=== PATIENT | male | born 1980 | race Caucasian/White ===

== ENCOUNTER 2017-06-30 22:53 | Emergency (ER) | payer OTHER ==
[2017-06-30] MEDS ORDERED: SODIUM CHLORIDE 0.9% 1,000 ML with MVI, ADULT NO.4 WITH VIT K 10 ML, THIAMINE 100 MG, F... IV ONE ×4 (23:37)
[2017-06-30] MEDS ORDERED: LORazepam 1 MG TAB PO STA (23:37)
[2017-06-30 23:44] LABS: Amphetamine Screen,Urine Not Detected (NotDetected); Barbiturate Screen,Urine Not Detected (NotDetected); Benzodiazepines Screen,Urine Not Detected (NotDetected); Cocaine Screen,Urine Not Detected (NotDetected); Methadone Screen, Urine Not Detected (NotDetected); Opiate Screen,Urine Not Detected (NotDetected); Oxycodone Screen, Urine Not Detected (NotDetected); Phencyclidine Screen,Urine Not Detected (NotDetected); Tricyclic Antidepressant,Urine Not Detected (NotDetected); Urn Cannabinoid Scrn Not Detected (NotDetected)
[2017-07-01 00:02] LABS: Basophils % (A) 0 %; Eosinophils # (A) 0.1 k/uL (0-0.7); Eosinophils % (A) 1 %; HCT 46.4 % (39.0-53.0); HGB 16.1 gm/dL (13.0-17.5); Lymphocytes # (A) 1.4 k/uL (1.0-4.8); Lymphocytes % (A) 25 %; MCH 29.3 pg (25.0-35.0); MCHC 34.8 g/dL (31.0-37.0); MCV 84.3 fL (80.0-100.0); Mean Platelet Volume 7.3; Monocytes # (A) 0.3 k/uL (0-1.0); Monocytes % (A) 5 %; Neutrophils # (A) 3.8 k/uL (1.3-7.7); Neutrophils % (A) 67 %; Platelet Count 277 k/uL (150-450); RDW 12.5 % (11.5-15.5); WBC 5.8 k/uL (3.8-10.6)
--- NOTE | 2017-07-01 00:11 | XR ---
History rib pain. Comparison none. Technique 5 views. FINDINGS: Heart and mediastinum are normal. There is no pleural effusion or pneumothorax. Left lung is clear. T here is probably a nondisplaced fracture of the anterior tip of the left 10th rib. The other ribs gareth ear intact. CONCLUSION: No cardiopulmonary disease. Nondisplaced left 10th rib fracture.
[2017-07-01 00:24] LABS: ALT 40 U/L (21-72); AST 60 U/L (17-59); Albumin 5.3 g/dL (3.5-5.0); Alkaline Phosphatase 87 U/L (38-126); Amylase 93 U/L (30-110); Anion Gap 23 mmol/L; Blood Urea Nitrogen 6 mg/dL (9-20); Calcium 10.2 mg/dL (8.4-10.2); Carbon Dioxide 27 mmol/L (22-30); Chloride 95 mmol/L (98-107); Glucose 97 mg/dL (74-99); Lipase 219 U/L (23-300); Potassium 3.9 mmol/L (3.5-5.1); Sodium 145 mmol/L (137-145); Total Bilirubin 0.6 mg/dL (0.2-1.3); Total Protein 8.5 g/dL (6.3-8.2)
--- NOTE | 2017-07-01 01:23 | ED ---
General Adult HPI - General Source: patient, family, RN notes reviewed Mode of arrival: wheelchair Limitations: no limitations <Héctor Dorantes - Last Filed: 07/01/17 01:23> <Adair Angeles - Last Filed: 07/01/17 12:55> - General Chief complaint: Alcohol Stated complaint: Rib Injury, Alcohol Time Seen by Provider: 06/30/17 23:31 - History of Present Illness Initial comments: Chief complaint history of present illness a 36-year-old male here with 2 complaints one he thinks he is withdrawing from alcohol. He drank only 3 beers several hours ago. His current breath alcohol was measured at 0.311. The patient also reports that a dog jumped on him on his on the sofa 4 days ago injuring his left rib cage. (Héctor Dorantes) - Related Data Home Medications Medication Instructions Recorded Confirmed Melatonin 5 mg PO HS 06/30/17 06/30/17 Previous Rx's Medication Instructions Recorded Diazepam [Valium] 5 mg PO Q6H #10 tab 07/01/17 Allergies Allergy/AdvReac Type Severity Reaction Status Date / Time No Known Allergies Allergy Verified 06/30/17 23:24 Review of Systems ROS Other: All systems not noted in ROS Statement are negative. <Héctor Dorantes - Last Filed: 07/01/17 01:23> ROS Other: All systems not noted in ROS Statement are negative. <Adair Angeles - Last Filed: 07/01/17 12:55> ROS Statement: Those systems with pertinent positive or pertinent negative responses have been documented in the HPI. Review of systems no other complaints of headache or visual acuity changes she has left rib area pain. No abdominal pain denies nausea vomiting or diarrhea. Past medical problems he's been through alcohol rehab 5 years ago. Surgeries are none. Family history grandfather is no alcoholic. Grandmother had lung cancer. The patient denies ALLERGIES. He does smoke strongly encouraged to stop in the reports is not alcoholic. (Héctor Dorantes) Past Medical History Additional Past Medical History / Comment(s): alcoholism History of Any Multi-Drug Resistant Organisms: None Reported Past Surgical History: No Surgical Hx Reported Past Psychological History: Depression Smoking Status: Current every day smoker Past Alcohol Use History: Abuse, Daily Past Drug Use History: None Reported <Héctor Dorantes - Last Filed: 07/01/17 01:23> General Exam Limitations: no limitations <Héctor Dorantes - Last Filed: 07/01/17 01:23> <Adair Angeles - Last Filed: 07/01/17 12:55> - General Exam Comments Initial Comments: General: The patient is awake states he thinks he is going through withdrawal. Current breath alcohol is 0.311. Also complains of left rib cage pain. Vital signs temperature 97.0 pulse 103 respiratory rate 18 pulse ox 96% room air blood pressure 136/92 Eye: Pupils are equal, round and reactive to light, extra-ocular movements are intact ; there is normal conjunctiva bilaterally. No signs of icterus. Ears, nose, mouth and throat: There are moist mucous membranes and no oral lesions. Neck: The neck is supple, there is no tenderness . Cardiovascular: There is a regular rate and rhythm. No murmur, rub or gallop is appreciated. Respiratory: Lungs are clear to auscultation, respirations are non-labored, breath sounds are equal. No wheezes, stridor, rales, or rhonchi. No bruises noted on the chest wall. Gastrointestinal: Soft, non-distended, non-tender abdomen without masses or organomegaly noted. There is no rebound or guarding present. No CVA tenderness. Bowel sounds are unremarkable. Back: There is no tenderness to palpation in the midline. There is no obvious deformity. No rashes noted. Musculoskeletal: Normal ROM, no tenderness, There is no pedal edema. There is no calf tenderness or swelling. Neurological: No neuro deficits. Patient answers questions appropriately. Patient states he thinks he might be going through withdrawal. Skin: Skin is warm and dry and no rashes or lesions are noted. (Héctor Dorantes) Vital Signs 06/30/17 07/01/17 07/01/17 22:56 02:00 02:33 Temperature 97.0 F L 98.5 F Pulse Rate 103 H 90 Respiratory 18 17 18 Rate Blood Pressure 136/92 146/65 O2 Sat by Pulse 96 97 Oximetry 07/01/17 07/01/17 07/01/17 03:00 05:00 06:10 Temperature 98.5 F Pulse Rate 96 Respiratory 16 16 19 Rate Blood Pressure 104/65 O2 Sat by Pulse 96 Oximetry Medical Decision Making - Lab Data Result diagrams: 06/30/17 23:44 06/30/17 23:44 <Héctor Dorantes - Last Filed: 07/01/17 01:23> - Lab Data Result diagrams: 06/30/17 23:44 06/30/17 23:44 <Melo Angelesophe - Last Filed: 07/01/17 12:55> - Medical Decision Making Medical decision making; is a 36-year-old males comes emergency room with 2 complaints the first day thinks he is detoxing. He does state he had 3 beers prior to coming in and his breath alcohol is 0.311. Also complains of left sided rib cage pain which been ongoing for 5 days after a dog jumped on him while he was on a sofa. Labs show white count of 5.8 hemoglobin 16 hematocrit of 46 with a potassium 3.9. BUN 6 creatinine 0.8 GFR greater than 90. Glucose 97. Drug triage is negative. The patient's EtOH breath alcohol was 0.311. Amylase lipase normal limits. Patient did tell the admitting triage nurse that he was suicidal was crying in the both of the time. He will not be sober until 11 AM for evaluation by psychiatric nurse. Patient was started on banana bag and Ativan. Etiologies reviewed x-rays of the patient's chest and his impression is no cardiopulmonary disease nondisplaced left 10th rib fracture. As read by Dr. Gibson (Héctor Dorantes) - Lab Data Lab Results 06/30/17 06/30/17 06/30/17 Range/Units 23:11 23:44 23:44 WBC 5.8 (3.8-10.6) k/uL RBC 5.50 (4.30-5.90) m/uL Hgb 16.1 (13.0-17.5) gm/dL Hct 46.4 (39.0-53.0) % MCV 84.3 (80.0-100.0) fL MCH 29.3 (25.0-35.0) pg MCHC 34.8 (31.0-37.0) g/dL RDW 12.5 (11.5-15.5) % Plt Count 277 (150-450) k/uL Neutrophils % 67 % Lymphocytes % 25 % Monocytes % 5 % Eosinophils % 1 % Basophils % 0 % Neutrophils # 3.8 (1.3-7.7) k/uL Lymphocytes # 1.4 (1.0-4.8) k/uL Monocytes # 0.3 (0-1.0) k/uL Eosinophils # 0.1 (0-0.7) k/uL Basophils # 0.0 (0-0.2) k/uL Sodium 145 (137-145) mmol/L Potassium 3.9 (3.5-5.1) mmol/L Chloride 95 L (98-107) mmol/L Carbon Dioxide 27 (22-30) mmol/L Anion Gap 23 mmol/L BUN 6 L (9-20) mg/dL Creatinine 0.80 (0.66-1.25) mg/dL Est GFR (CKD-EPI)AfAm >90 (>60 ml/min/1.73 sqM) Est GFR (CKD-EPI)NonAf >90 (>60 ml/min/1.73 sqM) Glucose 97 (74-99) mg/dL Calcium 10.2 (8.4-10.2) mg/dL Total Bilirubin 0.6 (0.2-1.3) mg/dL AST 60 H (17-59) U/L ALT 40 (21-72) U/L Alkaline Phosphatase 87 (38-126) U/L Total Protein 8.5 H (6.3-8.2) g/dL Albumin 5.3 H (3.5-5.0) g/dL Amylase 93 (30-110) U/L Lipase 219 (23-300) U/L Urine Opiates Screen Not Detected (NotDetected) Ur Oxycodone Screen Not Detected (NotDetected) Urine Methadone Screen Not Detected (NotDetected) Ur Propoxyphene Screen Not Detected (NotDetected) Ur Barbiturates Screen Not Detected (NotDetected) U Tricyclic Antidepress Not Detected (NotDetected) Ur Phencyclidine Scrn Not Detected (NotDetected) Ur Amphetamines Screen Not Detected (NotDetected) U Methamphetamines Scrn Not Detected (NotDetected) U Benzodiazepines Scrn Not Detected (NotDetected) Urine Cocaine Screen Not Detected (NotDetected) U Marijuana (THC) Screen Not Detected (NotDetected) Disposition <Héctor Dorantes - Last Filed: 07/01/17 01:23> Is patient prescribed a controlled substance at d/c from ED?: Yes When asked, does pt state using other controlled substances?: No Time of Disposition: 12:54 <Adair Angeles - Last Filed: 07/01/17 12:55> Clinical Impression: Alcoholic intoxication Disposition: HOME SELF-CARE Condition: Good Instructions: Alcohol Intoxication (ED) Prescriptions: Diazepam [Valium] 5 mg PO Q6H #10 tab Referrals: None,Stated [Primary Care Provider] - 1-2 days
[2017-07-01] MEDS ORDERED: LORazepam 2 MG/ML INJ IV PRN ×3 (01:25)
[2017-07-01 13:31] VITALS: BP 127/69; PULSE 88; RESP 16; TEMP 98
== END 2017-07-01 14:00 | disposition home or self-care (01) ==
LOC: EC 22:53
DX: S22.32XA Fracture of one rib, left side, initial encounter for closed fracture (principal); F10.129 Alcohol abuse with intoxication, unspecified; F17.200 Nicotine dependence, unspecified, uncomplicated; Z79.899 Other long term (current) drug therapy; W54.1XXA Struck by dog, initial encounter
CPT/HCPCS: 99284; 82075; 36415; 80053; 82150; 83690; 85025; 80306; 71101; 96365; 96366 ×13; 96375; J2060; J3411

== ENCOUNTER 2020-09-12 15:07 | Emergency (ER) | payer OTHER ==
--- NOTE | 2020-09-12 15:22 | ED ---
General Adult HPI - General Chief complaint: Psychiatric Symptoms Stated complaint: mental health Time Seen by Provider: 09/12/20 15:22 Source: patient, RN notes reviewed, old records reviewed Limitations: no limitations - History of Present Illness Initial comments: Patient is a 40-year-old male with past medical history remarkable for chronic alcohol abuse, depression, anxiety, alcohol withdrawal's who presents emergency Department complaining of being drunk and feeling depressed and suicidal. He has been having suicidal ideations but denies any attempts or plans. He is also complaining of insomnia over the last few days. He states he has gone through alcohol chills in the past, dispensing seizures as well as bad tremors. He has been drinking for the last 3 days after being sober for 2-1/2 days previously. He was in the hospital last weekend for alcohol withdrawals and discharged on Librium on Monday, which she took until Monday. He has been drinking since Monday evening. Is currently Monday afternoon. Denies any homicidal ideations, attempts, plans. He denies any visual or auditory hallucinations. He denies any tremors. He states he does feel anxious. He has not slept in 3 days. He is willing to discuss possibly quitting alcohol use. He denies any chest pain, shortness breath, headaches. He does endorse general last abdominal pain which is chronic. He denies any nausea or vomiting. He is requesting a dose of Ativan to help him calm down. He otherwise has no acute complaints at this time. Patient was brought in by himself in with his friend over concern for safety secondary to the suicidal ideations. - Related Data Home Medications Medication Instructions Recorded Confirmed DULoxetine HCL [Cymbalta] See Taper PO DAILY 09/12/20 09/12/20 Folic Acid 1 mg PO DAILY 09/12/20 09/12/20 Thiamine [Vitamin B-1] 100 mg PO DAILY 09/12/20 09/12/20 chlordiazePOXIDE HCl [Librium] See Taper PO BID 09/12/20 09/12/20 hydrOXYzine pamoate [Vistaril] 25 mg PO HS PRN 09/12/20 09/12/20 Allergies Allergy/AdvReac Type Severity Reaction Status Date / Time No Known Allergies Allergy Verified 09/12/20 17:31 Review of Systems ROS Statement: Those systems with pertinent positive or pertinent negative responses have been documented in the HPI. Review of Systems: CONST: Denies fever EYES: Denies blurry vision ENT: Denies nasal congestion C/V: Denies Chest pain RESP: Denies shortness of breath GI: Endorses abdominal pain : Denies dysuria SKIN: Denies rash. MSK: Denies joint pain. NEURO: Denies headache PSYCH: Denies homicidal ideations/plans/attempts. Denies visual or auditory hallucinations. Endorses suicidal ideations. Denies suicidal plans or attempts. ROS Other: All systems not noted in ROS Statement are negative. Past Medical History Additional Past Medical History / Comment(s): alcoholism History of Any Multi-Drug Resistant Organisms: None Reported Past Surgical History: No Surgical Hx Reported Past Psychological History: Anxiety, Depression, PTSD Smoking Status: Current every day smoker Past Alcohol Use History: Abuse, Daily Past Drug Use History: None Reported General Exam - General Exam Comments Initial Comments: General: Appears acutely intoxicated with alcohol but not currently going through withdrawals. HEAD: Normal with no signs of head trauma. EYES: PERRLA, EOMI, conjunctiva normal, no discharge. ENT: Hearing grossly intact, normal oropharynx. No oropharyngeal tremor. RESPIRATORY: Clear breath sounds bilaterally. No wheezes, rales, or rhonchi. C/V: Patient is tachycardic with a regular rhythm. S1 and S2 auscultated. No peripheral edema. Peripheral pulses are 2+ intact throughout. ABD: Abdomen is soft, nondistended. He does have some generalized tenderness to palpation over the abdomen. There is no guarding. There are no peritoneal signs. Abdominal exam is unimpressive. EXT: Normal range of motion, no obvious deformity SKIN: No rashes or lesions observed on exposed skin. NEURO: Alert and oriented 4. Cranial nerves II through XII intact. No focal sensory or strength deficits. Patient currently has no tremors. Limitations: no limitations Course Vital Signs 09/12/20 09/12/20 09/12/20 15:13 18:21 21:10 Temperature 98.1 F Pulse Rate 118 H 95 74 Respiratory 22 16 18 Rate Blood Pressure 131/75 115/67 110/62 O2 Sat by Pulse 99 99 99 Oximetry Medical Decision Making - Medical Decision Making Based on the patient's presentation and physical exam, I do believe that he will require psychiatric evaluation for his alcohol abuse as well as suicidal ideations, however I would like to medically clear him for first. We will obtain basic laboratory studies due to his tachycardia as well as his nonspecific abdominal pain that he is experiencing. This will include an alcohol level. He will be given 0.5 of IV Ativan as well as 1 L fluid bolus. EKG will be obtained as a screening tool for his tachycardia. He was placed in green scrubs. Patient does have a history of alcohol withdrawals, however he currently does not appear to be in active withdrawal. The tachycardia is likely more anxiety related. We will continue to monitor for withdrawals and Librium when necessary will be ordered for agitation and withdrawal symptoms. Laboratory studies remarkable for alcohol intoxication with a level 253. The remainder of his labs are unremarkable. EKG revealed sinus tachycardia. He also appears to have a mild incomplete right bundle branch block. At this time, she will protocol was placed and Ativan alcohol withdrawl protocol was placed. Librium was cancelled. He'll be evaluated by psychiatry once sober. Abdominal pain is improved. Patient is cleared for evaluation by robert [email or web address]. Psychiatry evaluated the patient, and he will be admitted to the hospital. Psychiatry requested a COVID-19 swab. Admission certification was filled out by me after discussion with the patient. Patient will therefore require inpatient psychiatry evaluation and admission. Patient will be admitted in fair condition. - Lab Data Result diagrams: 09/12/20 15:45 09/12/20 15:45 Lab Results 09/12/20 09/12/20 09/12/20 Range/Units 15:45 15:45 16:05 WBC 4.4 (3.8-10.6) k/uL RBC 4.64 (4.30-5.90) m/uL Hgb 14.7 (13.0-17.5) gm/dL Hct 40.9 (39.0-53.0) % MCV 88.2 (80.0-100.0) fL MCH 31.7 (25.0-35.0) pg MCHC 35.9 (31.0-37.0) g/dL RDW 12.0 (11.5-15.5) % Plt Count 190 (150-450) k/uL MPV 7.8 Neutrophils % 47 % Lymphocytes % 37 % Monocytes % 6 % Eosinophils % 5 % Basophils % 1 % Neutrophils # 2.0 (1.3-7.7) k/uL Lymphocytes # 1.6 (1.0-4.8) k/uL Monocytes # 0.3 (0-1.0) k/uL Eosinophils # 0.2 (0-0.7) k/uL Basophils # 0.0 (0-0.2) k/uL Sodium 143 (137-145) mmol/L Potassium 4.3 (3.5-5.1) mmol/L Chloride 105 (98-107) mmol/L Carbon Dioxide 26 (22-30) mmol/L Anion Gap 12 mmol/L BUN 7 L (9-20) mg/dL Creatinine 0.86 (0.66-1.25) mg/dL Est GFR (CKD-EPI)AfAm >90 (>60 ml/min/1.73 sqM) Est GFR (CKD-EPI)NonAf >90 (>60 ml/min/1.73 sqM) Glucose 108 H (74-99) mg/dL Calcium 9.6 (8.4-10.2) mg/dL Total Bilirubin 0.3 (0.2-1.3) mg/dL AST 37 (17-59) U/L ALT 20 (4-49) U/L Alkaline Phosphatase 72 (38-126) U/L Total Protein 7.6 (6.3-8.2) g/dL Albumin 4.9 (3.5-5.0) g/dL Lipase 199 (23-300) U/L Urine Opiates Screen Not Detected (NotDetected) Ur Oxycodone Screen Not Detected (NotDetected) Urine Methadone Screen Not Detected (NotDetected) Ur Propoxyphene Screen Not Detected (NotDetected) Ur Barbiturates Screen Not Detected (NotDetected) U Tricyclic Antidepress Not Detected (NotDetected) Ur Phencyclidine Scrn Not Detected (NotDetected) Ur Amphetamines Screen Not Detected (NotDetected) U Methamphetamines Scrn Not Detected (NotDetected) U Benzodiazepines Scrn Detected H (NotDetected) Urine Cocaine Screen Not Detected (NotDetected) U Marijuana (THC) Screen Not Detected (NotDetected) Serum Alcohol 253 H* mg/dL - EKG Data -: EKG Interpreted by Me EKG Comments: 12-lead Electrocardiogram Interpretation Note EKG was reviewed and interpreted by myself. 12-lead ECG performed at 1629 is in terpreted by me as revealing sinus rhythm with an incomplete right bundle branch block. At a rate of 95 beats per minute. Right axis deviation. CT interval is 184 ms, QRS duration is 106 ms, QTc is 457 ms.. There were no ST or T wave abnormalities to suggest myocardial ischemia or injury. R wave progression across the precordium was satisfactory. By my interpretation this EKG is non-diagnostic for acute ischemia. Disposition Clinical Impression: Alcohol intoxication, History of alcoholism, Alcohol dependence with withdrawal, Suicidal ideation Disposition: OTHER INSTITUTION NOT DEFINED Condition: Fair Is patient prescribed a controlled substance at d/c from ED?: No Referrals: [facility],Clinic [Primary Care Provider] - 1-2 days - Out of Hospital Transfer - Req. Specs Out of Hospital Transfer - Requested Specifics: Other Non-Acute (inpatient psychiatry)
[2020-09-12] MEDS ORDERED: SODIUM CHLORIDE 0.9% 1,000 ML IV STA (15:32)
[2020-09-12] MEDS ORDERED: LORazepam 2 MG/ML INJ IV STA (15:32)
[2020-09-12] MEDS ORDERED: KETOROLAC 15 MG/ML 1 ML VIAL IVP STA (15:34)
[2020-09-12] MEDS ORDERED: chlordiazePOXIDE 25 MG CAP PO PRN (15:34)
[2020-09-12 15:55] LABS: Basophils % (A) 1 %; Eosinophils # (A) 0.2 k/uL (0-0.7); Eosinophils % (A) 5 %; HCT 40.9 % (39.0-53.0); HGB 14.7 gm/dL (13.0-17.5); Lymphocytes # (A) 1.6 k/uL (1.0-4.8); Lymphocytes % (A) 37 %; MCH 31.7 pg (25.0-35.0); MCHC 35.9 g/dL (31.0-37.0); MCV 88.2 fL (80.0-100.0); Mean Platelet Volume 7.8; Monocytes # (A) 0.3 k/uL (0-1.0); Monocytes % (A) 6 %; Neutrophils % (A) 47 %; Platelet Count 190 k/uL (150-450); RBC 4.64 m/uL (4.30-5.90); WBC 4.4 k/uL (3.8-10.6)
[2020-09-12 16:13] LABS: Potassium 4.3 mmol/L (3.5-5.1)
[2020-09-12 16:14] LABS: ALT 20 U/L (4-49); AST 37 U/L (17-59); African American GFR (CKD) >90 (>60 ml/min/1.73 sqM); Albumin 4.9 g/dL (3.5-5.0); Alkaline Phosphatase 72 U/L (38-126); Anion Gap 12 mmol/L; Blood Urea Nitrogen 7 mg/dL (9-20); Calcium 9.6 mg/dL (8.4-10.2); Carbon Dioxide 26 mmol/L (22-30); Chloride 105 mmol/L (98-107); Glucose 108 mg/dL (74-99); Lipase 199 U/L (23-300); Non-African American GFR(CKD) >90 (>60 ml/min/1.73 sqM); Sodium 143 mmol/L (137-145); Total Bilirubin 0.3 mg/dL (0.2-1.3); Total Protein 7.6 g/dL (6.3-8.2)
[2020-09-12 16:17] LABS: Alcohol 253 mg/dL
[2020-09-12 17:11] LABS: Amphetamine Screen,Urine Not Detected (NotDetected); Barbiturate Screen,Urine Not Detected (NotDetected); Benzodiazepines Screen,Urine Detected (NotDetected); Cocaine Screen,Urine Not Detected (NotDetected); Methadone Screen, Urine Not Detected (NotDetected); Opiate Screen,Urine Not Detected (NotDetected); Oxycodone Screen, Urine Not Detected (NotDetected); Phencyclidine Screen,Urine Not Detected (NotDetected); Tricyclic Antidepressant,Urine Not Detected (NotDetected); Urn Cannabinoid Scrn Not Detected (NotDetected)
[2020-09-12] MEDS ORDERED: THIAMINE 100 MG/ML 2 ML VIAL IM STA (17:27)
[2020-09-12] MEDS: LORazepam 2 MG/ML INJ IV PRN ×2 (18:03→18:55)
[2020-09-13] MEDS: LORazepam 2 MG/ML INJ IV PRN ×2 (00:52→15:49)
[2020-09-13 03:10] LABS: Appearance,Urine Clear (Clear); Bilirubin,Urine Negative (Negative); Blood,Urine Negative (Negative); Color,Urine Light Yellow; Glucose,Urine (UA) Negative (Negative); Ketones,Urine Negative (Negative); Leukocyte Esterase,Urine Negative (Negative); Nitrite,Urine Negative (Negative); Protein,Urine Negative (Negative); Specific Gravity,Urine 1.005 (1.001-1.035); Urobilinogen,Urine <2.0 mg/dL (<2.0)
[2020-09-13] MEDS: THIAMINE 100 MG TAB PO SCH ×2 (09:08→22:02)
[2020-09-13] MEDS ORDERED: diphenhydrAMINE 25 MG CAP PO STA (22:02)
[2020-09-13] MEDS ORDERED: LORazepam 1 MG TAB PO STA (22:04)
[2020-09-14] MEDS: LORazepam 2 MG/ML INJ IV PRN ×2 (01:03→14:51)
[2020-09-14] MEDS: THIAMINE 100 MG TAB PO SCH (23:36)
[2020-09-15] MEDS: LORazepam 2 MG/ML INJ IV PRN (02:18)
[2020-09-15] MEDS: THIAMINE 100 MG TAB PO SCH ×3 (08:28→22:59)
[2020-09-15 14:41] VITALS: BP 117/69; PULSE 78; RESP 16; TEMP 98
== END 2020-09-16 05:22 | disposition other institution (70) ==
LOC: EC 15:07
DX: F10.239 Alcohol dependence with withdrawal, unspecified (principal); R45.851 Suicidal ideations; F32.9 Major depressive disorder, single episode, unspecified; F41.9 Anxiety disorder, unspecified; F17.200 Nicotine dependence, unspecified, uncomplicated; Z79.899 Other long term (current) drug therapy; Y90.8 Blood alcohol level of 240 mg/100 ml or more
CPT/HCPCS: 96374 ×2; 96375 ×2; 96376 ×4; 96361 ×4; 96372 ×2; 99285 ×2; 82075 ×2; 36415; 93005; 80053; 83690; 85025; 81003; 80306; 80320; 87635; J2060 ×2; J3411; J1885

== ENCOUNTER 2021-03-29 21:10 | Emergency (ER) | payer BC, OTHER ==
[2021-03-29 21:34] VITALS: TEMP 97.4
[2021-03-29 23:42] VITALS: BP 142/78; PULSE 77; RESP 16
--- NOTE | 2021-03-30 00:17 | ED ---
General Adult HPI - General Chief complaint: ENT Stated complaint: Lt Sided Neck Pain Time Seen by Provider: 03/29/21 23:34 Source: patient Mode of arrival: ambulatory Limitations: no limitations - History of Present Illness Initial comments: 40-year-old male presents to the emergency room for chief complaint of left- sided neck pain. Patient states for the past 4 days he has had some pain in the upper left neck. Patient states it is tender to press on the area. Denies pain worsening with movement. Patient denies any fevers or chills. Denies sore throat or ear pain. Patient denies radiating pain but did state when he woke up today his arm felt tingly. He denies any weakness in the arm.Patient has no other complaints at this time including shortness of breath, chest pain, abdominal pain, nausea or vomiting, headache, or visual changes. - Related Data Home Medications Medication Instructions Recorded Confirmed DULoxetine HCL [Cymbalta] See Taper PO DAILY 09/12/20 09/12/20 Folic Acid 1 mg PO DAILY 09/12/20 09/12/20 Thiamine [Vitamin B-1] 100 mg PO DAILY 09/12/20 09/12/20 chlordiazePOXIDE HCl [Librium] See Taper PO BID 09/12/20 09/12/20 hydrOXYzine pamoate [Vistaril] 25 mg PO HS PRN 09/12/20 09/12/20 Allergies Allergy/AdvReac Type Severity Reaction Status Date / Time No Known Allergies Allergy Verified 03/29/21 21:34 Review of Systems ROS Statement: Those systems with pertinent positive or pertinent negative responses have been documented in the HPI. ROS Other: All systems not noted in ROS Statement are negative. Past Medical History Additional Past Medical History / Comment(s): alcoholism History of Any Multi-Drug Resistant Organisms: None Reported Past Surgical History: No Surgical Hx Reported Past Psychological History: Anxiety, Depression, PTSD Smoking Status: Current some day smoker Past Alcohol Use History: Abuse, Daily Past Drug Use History: None Reported General Exam Limitations: no limitations General appearance: alert, in no apparent distress Head exam: Present: atraumatic Eye exam: Present: normal appearance, PERRL, EOMI. Absent: scleral icterus, con junctival injection ENT exam: Present: normal exam, normal oropharynx (Uvula midline, no tonsillar exudates bilaterally), mucous membranes moist, TM's normal bilaterally (None rythematous nonbulging L tm), normal external ear exam Neck exam: Present: normal inspection, tenderness (Patient has left submandibular area tenderness), full ROM, lymphadenopathy (Left submandibular lymphadenopathy noted on exam) Respiratory exam: Present: normal lung sounds bilaterally. Absent: respiratory distress, wheezes Cardiovascular Exam: Present: regular rate, normal rhythm, normal heart sounds GI/Abdominal exam: Present: soft, normal bowel sounds. Absent: distended, tenderness Extremities exam: Present: normal capillary refill (Capillary refill less than 2 seconds, radial pulse 2+ left upper extremity) Neurological exam: Present: alert, oriented X3, normal gait Course Vital Signs 03/29/21 03/29/21 21:30 23:41 Temperature 97.4 F L Pulse Rate 108 H 77 Respiratory 22 16 Rate Blood Pressure 146/97 142/78 O2 Sat by Pulse 97 97 Oximetry Medical Decision Making - Medical Decision Making Vitals are stable. Patient is well-appearing. HPI and physical exam as documented. Pertinent for tender submandibular lymphadenopathy. No pulsatile masses. Tympanic membrane appears within normal limits. Oropharynx appears normal. At this time patient can be discharged home to follow up with primary care. He will return here for any worsening symptoms. I discussed this case with attending Dr. Gann who agrees with this assessment and treatment plan. Disposition Clinical Impression: Submandibular lymphadenopathy, Neck pain Disposition: HOME SELF-CARE Condition: Good Instructions (If sedation given, give patient instructions): Lymphadenopathy (ED) Additional Instructions: Please take Motrin and Tylenol for pain. Follow-up with your doctor in one to 2 days. Return to the emergency room for any worsening symptoms. Is patient prescribed a controlled substance at d/c from ED?: No Referrals: Ricardo Del Rio PAC [Primary Care Provider] - 1-2 days Time of Disposition: 00:15
== END 2021-03-30 00:27 | disposition home or self-care (01) ==
LOC: EC 21:10
DX: M54.2 Cervicalgia (principal); R59.0 Localized enlarged lymph nodes; F32.A Depression, unspecified; F41.9 Anxiety disorder, unspecified; F17.200 Nicotine dependence, unspecified, uncomplicated; Z79.899 Other long term (current) drug therapy
CPT/HCPCS: 99283

== ENCOUNTER 2024-08-06 01:55 | Inpatient (IN) | payer BC, OTHER ==
[2024-08-06] MEDS: PHENobarbital SODIUM 130 MG/ML 1 ML VIAL IV STA ×4 (02:18→03:59)
--- NOTE | 2024-08-06 02:18 | ED ---
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 History is limited by the severity of patient's symptoms. He states he has "been seeing orange" been hearing people in his ear that are not there, and seeing things on the TV on the TV he is not on. Endorses a mild headache. Is oriented to self and place but not date. Denies nausea, vomiting, abdominal pain, chest pain or fevers. States he has gone t hrough alcohol withdrawal before but never to this severity. No history of alcohol withdrawal seizures. - Related Data Home Medications Medication Instructions Recorded Confirmed No Known Home Medications 08/06/24 08/06/24 Allergies Allergy/AdvReac Type Severity Reaction Status Date / Time No Known Allergies Allergy Verified 08/06/24 07:47 Review of Systems ROS Statement: Those systems with pertinent positive or pertinent negative responses have been documented in the HPI. ROS Other: All systems not noted in ROS Statement are negative. Past Medical History Additional Past Medical History / Comment(s): alcoholism History of Any Multi-Drug Resistant Organisms: None Reported Past Surgical History: No Surgical Hx Reported Past Psychological History: Anxiety, Depression, PTSD Smoking Status: Vaper Past Alcohol Use History: Abuse, Daily Past Drug Use History: Marijuana General Exam - General Exam Comments Initial Comments: PE: CONSTITUTIONAL: No apparent distress, ill-appearing, nontoxic, tremulous SKIN: Warm, dry, no jaundice, hives or petechiae EYES: Pupils are equally round, extraocular movements intact without nystagmus, clear conjunctiva, mildly icteric sclera HENT: Normocephalic, atraumatic, dry mucus membranes, oropharynx clear without exudates NECK: , Full range of motion, normal appearance PULMONARY: Clear to auscultation without wheezes, rhonchi, or rales, normal excursion, no accessory muscle use and no stridor CARDIOVASCULAR: Tachycardia, regular rate, rhythm, normal S1 and S2. No appreciated murmurs, rubs or gallops. Strong radial pulses with intact distal perfusion. No lower extremity edema GASTROINTESTINAL: Soft, active bowel sounds throughout, non-tender, non- distended, no palpable masses, no rebound or guarding. No hepatosplenomegaly MUSCULOSKELETAL: Extremities have no gross deformity, no edema, redness, or swelling. NEUROLOGIC:_a/o x 2, GCS 14,somewhat confused mentation, able to describe symptoms though thought process is tangential, and pt states date is 06/07/24, clear speech. Moves all extremities x 4 without motor or sensory deficit, diffuse tremors at rest PSYCHIATRIC:_anxious mood and affect, rapid pressured speech, tangential thought process, difficulty sitting still, tactile disturbances, auditory visual hallucinations Course Vital Signs 08/06/24 08/06/24 08/06/24 01:57 03:05 05:57 Temperature 98.9 F Pulse Rate 108 H 115 H 101 H Pulse Rate [ Breaker Hand ] Respiratory 18 20 18 Rate Blood Pressure 145/103 175/94 113/87 Blood Pressure [Left Arm] O2 Sat by Pulse 99 96 96 Oximetry 08/06/24 08/06/24 08/06/24 08:14 08:49 08:58 Temperature Pulse Rate 91 107 H Pulse Rate [ Breaker Hand ] Respiratory 18 18 19 Rate Blood Pressure 154/105 138/90 Blood Pressure [Left Arm] O2 Sat by Pulse 98 98 Oximetry 08/06/24 08/06/24 08/06/24 09:15 10:00 10:54 Temperature Pulse Rate 105 H Pulse Rate [ Breaker Hand ] Respiratory 15 16 19 Rate Blood Pressure 116/101 Blood Pressure [Left Arm] O2 Sat by Pulse 98 Oximetry 08/06/24 08/06/24 08/06/24 11:12 11:37 12:39 Temperature Pulse Rate Pulse Rate [ Breaker Hand ] Respiratory 18 19 Rate Blood Pressure 120/80 Blood Pressure [Left Arm] O2 Sat by Pulse Oximetry 08/06/24 08/06/24 08/06/24 13:21 14:44 16:13 Temperature Pulse Rate 93 95 102 H Pulse Rate [ Breaker Hand ] Respiratory 19 19 17 Rate Blood Pressure 131/95 126/87 179/141 Blood Pressure [Left Arm] O2 Sat by Pulse 98 98 98 Oximetry 08/06/24 08/06/24 08/06/24 16:45 16:50 17:49 Temperature Pulse Rate 86 Pulse Rate [ Breaker Hand ] Respiratory 19 18 18 Rate Blood Pressure 143/87 Blood Pressure [Left Arm] O2 Sat by Pulse 93 L Oximetry 08/06/24 08/06/24 08/06/24 18:00 18:28 21:00 Temperature Pulse Rate 80 98 Pulse Rate [ Breaker Hand ] Respiratory 19 17 19 Rate Blood Pressure 130/77 165/98 Blood Pressure [Left Arm] O2 Sat by Pulse 93 L 94 L 95 Oximetry 08/06/24 08/06/24 08/07/24 23:09 23:47 00:00 Temperature 98.4 F Pulse Rate 102 H 94 87 Pulse Rate [ Breaker Hand ] Respiratory 18 18 18 Rate Blood Pressure 127/90 95/71 124/84 Blood Pressure [Left Arm] O2 Sat by Pulse 96 98 97 Oximetry 08/07/24 08/07/24 08/07/24 01:00 02:00 03:00 Temperature Pulse Rate 81 82 80 Pulse Rate [ Breaker Hand ] Respiratory 18 17 17 Rate Blood Pressure 116/74 108/75 103/71 Blood Pressure [Left Arm] O2 Sat by Pulse 95 94 L 93 L Oximetry 08/07/24 08/07/24 08/07/24 05:00 08:00 08:15 Temperature Pulse Rate 76 Pulse Rate [ 100 100 Breaker Hand ] Respiratory 18 18 18 Rate Blood Pressure 105/71 Blood Pressure 107/97 107/97 [Left Arm] O2 Sat by Pulse 97 Oximetry 08/07/24 12:00 Temperature Pulse Rate Pulse Rate [ 86 Breaker Hand ] Respiratory 20 Rate Blood Pressure Blood Pressure 106/74 [Left Arm] O2 Sat by Pulse Oximetry - Reevaluation(s) Reevaluation #1: On reassessment pt is much less tremulous, is sitting upright in bed, speech is still somewhat tangential however pt less agitated, CIWA 15, ordered additional 260 mg IV phenobarbital 08/06/24 02:45 EKG Findings - EKG Comments: EKG Findings:: Sinus tachycardia, rate 104 bpm, intervals within acceptable limits, no significant ST elevations or depressions, incomplete right bundle branch block present, right axis deviation, no arrhythmia no STEMI Medical Decision Making - Medical Decision Making Was pt. sent in by a medical professional or institution (, PA, DECORATING INSPECTOR, urgent care, hospital, or alf...) When possible be specific @ -[No] Did you speak to anyone other than the patient for history (EMS, parent, family, police, friend...)? What history was obtained from this source @ -[facility] personnel, they state that on their arrival patient was very tremulous and anxious, he received 5 mg of IM Versed with some improvement of his symptoms Did you review nursing and triage notes (agree or disagree)? Why? @ -[I reviewed nursing and triage notes] Were old charts reviewed (outside hosp., previous admission, EMS record, old EKG, old radiological studies, urgent care reports/EKG's, alf records)? Report findings @ -[Medical records reviewed] Differential Diagnosis (chest pain, altered mental status, abdominal pain women, abdominal pain men, vaginal bleeding, weakness, fever, dyspnea, syncope, headache, dizziness, GI bleed, back pain, seizure, CVA, palpatations, mental health, musculoskeletal)? Differential Altered Mental Status: Hypoglycemia, DKA, hypercapnia, ETOH, overdose, CO poisoning, trauma, myxedema coma, HTN encephalopathy, infection, encephalitis, psychosis, intercranial hemorrhage, hepatic encephalopathy, meningitis, CVA, this is not meant to be an all-inclusive list EKG interpreted by me (3pts min.). @ -[As above] X-rays interpreted by me (1pt min.). @ -[None done] CT interpreted by me (1pt min.). @Personally reviewed CT brain I see no evidence of hemorrhage or mass effect U/S interpreted by me (1pt. min.). @ -[None done] What testing was considered but not performed or refused? (CT, X-rays, U/S, labs)? Why? @ -[None] What meds were considered but not given or refused? Why? Benzodiazipines were considered however pt responded well to phenobarbital, adding benzos was avoiding so as to avoid respiratory depression from polypharmacy, will be placed on oral taper at time of admission Did you discuss the management of the patient with other professionals (professionals i.e. , PA, DECORATING INSPECTOR, lab, RT, psych nurse, health social work professor, early head start teacher, teacher, chief strategy officer, keycase assembler)? Give summary @ -[No] Was smoking cessation discussed for >3mins.? @ -[No] Was critical care preformed (if so, how long)? @ Yes 45 minutes Were there social determinants of health that impacted care today? How? (Homelessness, low income, unemployed, alcoholism, drug addiction, transportation, low edu. Level, literacy, decrease access to med. care, retirement, rehab)? @ Alcoholism Was there de-escalation of care discussed even if they declined (Discuss DNR or withdrawal of care, Hospice)? @ -[No] What co-morbidities impacted this encounter? (DM, HTN, Smoking, COPD, CAD, Cancer, CVA, ARF, Chemo, Hep., AIDS, mental health diagnosis, sleep apnea, morbid obesity)? @Alcoholism Was patient admitted / discharged? Hospital course, mention meds given and route, prescriptions, significant lab abnormalities, going to OR and other pertinent info. @ -Admission- Patient is a 43-year-old gentleman past medical history of alcoholism presenting to the for alcohol withdrawal. Received 5 mg IM Versed prior to arrival by EMS. On my assessment patient is resting in bed with visible tremors, he is picking at EKG leads, though is redirectable, believes the date is June 07, 2024, he is anxious, he is not diaphoretic, nauseous or vomiting, endorses a mild headache. Endorses visual and auditory hallucinations. No seizure activity. CIWA on my assessment 30. Given patient has no additional medical problems, given his severity of symptoms and anticipate admission, will start patient on phenobarbital. Will begin with 390 mg IV and reassess. Additional labs, multivitamin, IV fluids, thiamine and folic acid ordered. Though I suspect patient's altered mental status is secondary to alcohol withdrawal, will also obtain CT brain to ensure no acute cranial process. Patient agreeable plan of care. After receiving total of 390 milligrams phenobarbital, patient is sitting upright in bed and is still anxious appearing, though tremors have significantly improved. Ordered additional 260 mg IV phenobarbital. Anticipate admission. On reassessment pt continues to appear comfortable and symptoms continue to improve, plan for admission to step down. Case discussed with TANIA Davenport, kindly accepts pt for admission. Undiagnosed new problem with uncertain prognosis? @ -[No] Drug Therapy requiring intensive monitoring for toxicity (Heparin, Nitro, Insulin, Cardizem)? @ -[No] Were any procedures done? @ -[No] Diagnosis/symptom? @Alcohol withdrawal, severe Acute, or Chronic, or Acute on Chronic? @acute Uncomplicated (without systemic symptoms) or Complicated (systemic symptoms)? @ complicated Side effects of treatment? @ -[No] Exacerbation, Progression, or Severe Exacerbation? @ -[No] Poses a threat to life or bodily function? How? (Chest pain, USA, ME, pneumonia, PE, COPD, DKA, ARF, appy, cholecystitis, CVA, Diverticulitis, Homicidal, Suicidal, threat to staff... and all critical care pts) yes - Lab Data Result diagrams: 08/09/24 07:02 08/09/24 07:02 Lab Results 08/06/24 08/06/24 08/06/24 Range/Units 02:06 02:06 02:06 WBC 6.03 (4.50-10.00) 10*3/uL RBC 4.75 (4.40-5.60) 10*6/uL Hgb 15.5 (13.0-17.0) g/dL Hct 42.4 (39.6-50.0) % MCV 89.3 (80.0-97.0) fL MCH 32.6 H (27.0-32.0) pg MCHC 36.6 (32.0-37.0) g/dL Plt Count 116 L (140-440) 10*3/uL MPV 10.1 (9.5-12.2) fL Immature Gran % (Auto) 0.3 % Neutrophils % 82.3 % Lymphocytes % 7.6 % Monocytes % 9.3 % Eosinophils % 0.2 % Basophils % 0.3 % Immature Gran # 0.02 (0.00-0.04) 10*3/uL Neutrophils # 4.96 (1.80-7.70) 10*3/uL Lymphocytes # 0.46 L (0.90-5.00) 10*3/uL Monocytes # 0.56 (0.20-1.00) 10*3/uL Eosinophils # 0.01 L (0.04-0.35) 10*3/uL Basophils # 0.02 (0.00-0.10) 10*3/uL Immature Plt Fraction 4.5 (1.1-6.1) % PT 11.5 (10.0-12.5) sec INR 1.1 (<1.2) Sodium 133 L (137-145) mmol/L Potassium 3.4 L (3.5-5.1) mmol/L Chloride 98 (98-107) mmol/L Carbon Dioxide 18 L (22-30) mmol/L Anion Gap 17 mmol/L BUN 4 L (9-20) mg/dL Creatinine 0.77 (0.66-1.25) mg/dL Est GFR (CKD-EPI)AfAm >90 (>60 ml/min/1.73 sqM) Est GFR (CKD-EPI)NonAf >90 (>60 ml/min/1.73 sqM) Glucose 161 H (74-99) mg/dL Calcium 9.9 (8.4-10.2) mg/dL Phosphorus 3.2 (2.5-4.5) mg/dL Magnesium 1.3 L (1.6-2.3) mg/dL Total Bilirubin 1.9 H (0.2-1.3) mg/dL AST 104 H (17-59) U/L ALT 68 H (4-49) U/L Alkaline Phosphatase 60 (38-126) U/L Total Protein 7.8 (6.3-8.2) g/dL Albumin 4.8 (3.5-5.0) g/dL Lipase 142 (23-300) U/L Urine Opiates Screen (NotDetected) Ur Oxycodone Screen (NotDetected) Urine Methadone Screen (NotDetected) Ur Barbiturates Screen (NotDetected) U Tricyclic Antidepress (NotDetected) Ur Phencyclidine Scrn (NotDetected) Ur Amphetamines Screen (NotDetected) U Methamphetamines Scrn (NotDetected) U Benzodiazepines Scrn (NotDetected) Urine Cocaine Screen (NotDetected) U Marijuana (THC) Screen (NotDetected) Serum Alcohol <10 mg/dL 08/06/24 Range/Units 04:59 WBC (4.50-10.00) 10*3/uL RBC (4.40-5.60) 10*6/uL Hgb (13.0-17.0) g/dL Hct (39.6-50.0) % MCV (80.0-97.0) fL MCH (27.0-32.0) pg MCHC (32.0-37.0) g/dL Plt Count (140-440) 10*3/uL MPV (9.5-12.2) fL Immature Gran % (Auto) % Neutrophils % % Lymphocytes % % Monocytes % % Eosinophils % % Basophils % % Immature Gran # (0.00-0.04) 10*3/uL Neutrophils # (1.80-7.70) 10*3/uL Lymphocytes # (0.90-5.00) 10*3/uL Monocytes # (0.20-1.00) 10*3/uL Eosinophils # (0.04-0.35) 10*3/uL Basophils # (0.00-0.10) 10*3/uL Immature Plt Fraction (1.1-6.1) % PT (10.0-12.5) sec INR (<1.2) Sodium (137-145) mmol/L Potassium (3.5-5.1) mmol/L Chloride (98-107) mmol/L Carbon Dioxide (22-30) mmol/L Anion Gap mmol/L BUN (9-20) mg/dL Creatinine (0.66-1.25) mg/dL Est GFR (CKD-EPI)AfAm (>60 ml/min/1.73 sqM) Est GFR (CKD-EPI)NonAf (>60 ml/min/1.73 sqM) Glucose (74-99) mg/dL Calcium (8.4-10.2) mg/dL Phosphorus (2.5-4.5) mg/dL Magnesium (1.6-2.3) mg/dL Total Bilirubin (0.2-1.3) mg/dL AST (17-59) U/L ALT (4-49) U/L Alkaline Phosphatase (38-126) U/L Total Protein (6.3-8.2) g/dL Albumin (3.5-5.0) g/dL Lipase (23-300) U/L Urine Opiates Screen Not Detected (NotDetected) Ur Oxycodone Screen Not Detected (NotDetected) Urine Methadone Screen Not Detected (NotDetected) Ur Barbiturates Screen Detected H (NotDetected) U Tricyclic Antidepress Not Detected (NotDetected) Ur Phencyclidine Scrn Not Detected (NotDetected) Ur Amphetamines Screen Not Detected (NotDetected) U Methamphetamines Scrn Not Detected (NotDetected) U Benzodiazepines Scrn Detected H (NotDetected) Urine Cocaine Screen Not Detected (NotDetected) U Marijuana (THC) Screen Detected H (NotDetected) Serum Alcohol mg/dL Disposition Clinical Impression: Severe alcohol withdrawal with perceptual disturbances, Hypomagnesemia Disposition: ADMITTED IP TO THIS HOSP Condition: Stable
[2024-08-06 02:19] LABS: Basophils # (A) 0.02 10*3/uL (0.00-0.10); Basophils % (A) 0.3 %; Eosinophils # (A) 0.01 10*3/uL (0.04-0.35); Eosinophils % (A) 0.2 %; HCT 42.4 % (39.6-50.0); HGB 15.5 g/dL (13.0-17.0); Immature Platelet Fraction 4.5 % (1.1-6.1); Lymphocytes # (A) 0.46 10*3/uL (0.90-5.00); Lymphocytes % (A) 7.6 %; MCH 32.6 pg (27.0-32.0); MCHC 36.6 g/dL (32.0-37.0); MCV 89.3 fL (80.0-97.0); Mean Platelet Volume 10.1 fL (9.5-12.2); Monocytes # (A) 0.56 10*3/uL (0.20-1.00); Monocytes % (A) 9.3 %; Neutrophils # (A) 4.96 10*3/uL (1.80-7.70); Neutrophils % (A) 82.3 %; Platelet Count 116 10*3/uL (140-440); RBC 4.75 10*6/uL (4.40-5.60); RDW 11.9 % (11.5-14.5); WBC 6.03 10*3/uL (4.50-10.00)
[2024-08-06] MEDS: THIAMINE 100 MG/ML 2 ML VIAL IM STA (02:20)
[2024-08-06] MEDS: SODIUM CHLORIDE 0.9% 1,000 ML IV STA (02:21)
[2024-08-06 02:29] LABS: ALT 68 U/L (4-49); AST 104 U/L (17-59); African American GFR (CKD) >90 (>60 ml/min/1.73 sqM); Albumin 4.8 g/dL (3.5-5.0); Alcohol <10 mg/dL; Alkaline Phosphatase 60 U/L (38-126); Anion Gap 17 mmol/L; Blood Urea Nitrogen 4 mg/dL (9-20); Calcium 9.9 mg/dL (8.4-10.2); Carbon Dioxide 18 mmol/L (22-30); Chloride 98 mmol/L (98-107); Glucose 161 mg/dL (74-99); Lipase 142 U/L (23-300); Magnesium 1.3 mg/dL (1.6-2.3); Non-African American GFR(CKD) >90 (>60 ml/min/1.73 sqM); Phosphorus 3.2 mg/dL (2.5-4.5); Potassium 3.4 mmol/L (3.5-5.1); Sodium 133 mmol/L (137-145); Total Bilirubin 1.9 mg/dL (0.2-1.3); Total Protein 7.8 g/dL (6.3-8.2)
[2024-08-06] MEDS: MULTIVITAMINS, THERA 1 EACH TAB PO STA (02:34)
[2024-08-06] MEDS: FOLIC ACID 1 MG TAB PO STA (02:34)
[2024-08-06 03:27] LABS: INR 1.1 (<1.2); Prothrombin Time 11.5 sec (10.0-12.5)
[2024-08-06] MEDS ORDERED: LORazepam 1 MG/0.5 ML VIAL IV PRN (04:05)
[2024-08-06] MEDS: LORazepam 1 MG/0.5 ML VIAL IV STA ×5 (04:08→23:29)
[2024-08-06] MEDS: POTASSIUM BICARBONATE/CIT AC 20 MEQ TABLET.EFF PO ONE (04:13)
[2024-08-06] MEDS: DEXTROSE 5%-0.45% NACL 1,000 ML IV SCH (04:14)
[2024-08-06] MEDS: MAGNESIUM SULFATE-D5W PMX 1 GM in DEXTROSE/WATER 1 100ML.BAG IVPB SCH (04:15)
[2024-08-06] MEDS: PHENobarbital SODIUM 130 MG/ML 1 ML VIAL IV PRN (04:37)
[2024-08-06 05:36] LABS: Amphetamine Screen,Urine Not Detected (NotDetected); Barbiturate Screen,Urine Detected (NotDetected); Benzodiazepines Screen,Urine Detected (NotDetected); Cocaine Screen,Urine Not Detected (NotDetected); Methadone Screen, Urine Not Detected (NotDetected); Opiate Screen,Urine Not Detected (NotDetected); Oxycodone Screen, Urine Not Detected (NotDetected); Phencyclidine Screen,Urine Not Detected (NotDetected); Tricyclic Antidepressant,Urine Not Detected (NotDetected); Urn Cannabinoid Scrn Detected (NotDetected)
--- NOTE | 2024-08-06 05:37 | CT ---
EXAM: CT Head Without Intravenous Contrast CLINICAL HISTORY: ITS.REASON CT Reason: altered mental status TECHNIQUE: Axial computed tomography images of the head/brain without intravenous contrast. CTDI is 49.2 mGy and DLP is 1200.4 mGy-cm. This CT exam was performed using one or more of the following dose reduction techniques: automated exposure control, adjustment of the mA and/or kV according to patient size, and/or use of iterative reconstruction technique. COMPARISON: No relevant prior studies available. FINDINGS: Brain: Unremarkable. No hemorrhage. No significant white matter disease. No edema. Ventricles: Unremarkable. No ventriculomegaly. Bones/joints: Unremarkable. No acute fracture. Soft tissues: Unremarkable. Sinuses: Unremarkable as visualized. No acute sinusitis. Mastoid air cells: Unremarkable as visualized. No mastoid effusion. IMPRESSION: No acute intracranial abnormality.
[2024-08-06] MEDS ORDERED: KETOROLAC 15 MG/ML 1 ML VIAL IVP PRN (06:04)
[2024-08-06] MEDS ORDERED: ONDANSETRON 4 MG/2 ML VIAL IVP PRN (06:04)
[2024-08-06] MEDS ORDERED: ALPRAZolam 0.25 MG TAB PO PRN (06:04)
[2024-08-06] MEDS ORDERED: CALCIUM CARBONATE 500 MG CHEWABLE PO PRN (06:04)
[2024-08-06] MEDS ORDERED: ACETAMINOPHEN TAB 325 MG TAB PO PRN (06:04)
[2024-08-06] MEDS ORDERED: MAG HYDROX/AL HYDROX/SIMETH 30 ML CUP PO PRN (06:04)
[2024-08-06] MEDS ORDERED: NALOXONE 0.4 MG/ML 1 ML VIAL IV PRN (06:04)
[2024-08-06] MEDS: PANTOPRAZOLE 40 MG TABLET PO SCH (08:02)
[2024-08-06] MEDS: ENOXAPARIN 40 MG/0.4 ML SYRINGE SQ SCH (08:09)
[2024-08-06] MEDS: MULTIVITAMINS, THERA 1 EACH TAB PO SCH (08:09)
[2024-08-06] MEDS: FOLIC ACID 1 MG TAB PO SCH (08:13)
[2024-08-06] MEDS: THIAMINE 250 MG in SODIUM CHLORIDE 0.9% 50 ML IVPB SCH (09:03)
[2024-08-06] MEDS ORDERED: Magnesium Replacement Protocol 1 EACH MISC MISCELLANE PRN (10:22)
[2024-08-06] MEDS ORDERED: Potassium Replacement Protocol 1 EACH MISC MISCELLANE PRN (10:22)
[2024-08-06] MEDS: LORazepam 1 MG/0.5 ML VIAL IV PRN ×4 (10:25→20:48)
[2024-08-06] MEDS ORDERED: HYDROcodone/APAP 5-325MG 1 EACH TAB PO PRN (11:09)
[2024-08-06] MEDS: chlordiazePOXIDE 25 MG CAP PO SCH (11:31)
[2024-08-06] MEDS ORDERED: LOPERAMIDE 2 MG CAP PO PRN (11:37)
[2024-08-06] MEDS ORDERED: cloNIDine HCL 0.1 MG TAB PO PRN (14:57)
--- NOTE | 2024-08-06 15:32 | HP ---
HISTORY AND PHYSICAL CHIEF COMPLAINT: Alcohol withdrawal symptoms. HISTORY OF PRESENT ILLNESS: This is a 43-year-old gentleman with a past medical history significant for alcohol, has taken the alcohol yesterday. The patient is having hallucinations, significant tremors, the patient is being closely monitored. CIWA protocol has been initiated. No chest pain. No palpitation. The patient is tachycardic. PAST MEDICAL HISTORY: Anxiety, depression, PTSD. HOME MEDICATIONS: None. ALLERGIES: None. FAMILY HISTORY: No history of heart disease or strokes in the family. SOCIAL HISTORY: Alcohol abuse, marijuana, vaping. REVIEW OF SYSTEMS: Fourteen-point review of systems is negative, except as mentioned earlier. PHYSICAL EXAMINATION: VITAL SIGNS: Pulse 107, blood pressure 138/98, respirations 18. HEENT: Conjunctivae normal. NECK: No jugular venous distention. CARDIOVASCULAR: S1, S2 muffled. RESPIRATORY: Breath sounds diminished at the bases. A few scattered rhonchi. ABDOMEN Soft. NERVOUS SYSTEM: Diffuse tremors. LABORATORY DATA: Labs are not available at this time. ASSESSMENT: 1. Acute alcohol withdrawal symptoms and delirium tremens. 2. Elevated AST and ALT, possibly alcoholic hepatitis. 3. Hypomagnesemia. 4. History of anxiety, depression, post-traumatic stress disorder. RECOMMENDATIONS: Recommend to continue current management and CIWA protocol. Supplement potassium, magnesium. Symptomatic treatment. Librium. Guarded prognosis because of multiple complex medical issues. Further recommendations to follow. See orders for details. Recommend alcohol cessation and rehab. MMODL / IJN: [id number] /
[2024-08-06] MEDS: cloNIDine HCL 0.1 MG TAB PO SCH (15:35)
[2024-08-06] MEDS ORDERED: PHENobarbitaL 16.2 MG TAB PO ONE ×2 (15:52→19:52)
--- NOTE | 2024-08-06 18:35 | P.MHFACE ---
Face to Face Restrain/Seclus - Evaluation Patient's Immediate Situation: Endangers self safety, Endangers others' safety, Endangers staff safety, Violent behavior Patient's Reaction to the Intervention: Appropriate, Calm, Relaxed, Cooperative Patient's Medical & Behavioral Condition: Agitated Need to Continue or Terminate Restraint or Seclusion: Continue Face to Face Eval of Restraint Date: 08/06/24 Face to Face Eval of Restraint Time: 15:55
[2024-08-06] MEDS: DEXMEDETOMIDINE/0.9% NACL(PMX) 400 MCG in EMPTY BAG 1 BAG IV SCH (23:05)
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
[2024-08-07 06:39] LABS: Basophils # (A) 0.03 10*3/uL (0.00-0.10); Basophils % (A) 0.7 %; Eosinophils # (A) 0.14 10*3/uL (0.04-0.35); Eosinophils % (A) 3.2 %; HCT 37.9 % (39.6-50.0); HGB 13.7 g/dL (13.0-17.0); Immature Platelet Fraction 6.3 % (1.1-6.1); Lymphocytes # (A) 1.14 10*3/uL (0.90-5.00); Lymphocytes % (A) 25.9 %; MCH 32.8 pg (27.0-32.0); MCHC 36.1 g/dL (32.0-37.0); MCV 90.7 fL (80.0-97.0); Mean Platelet Volume 10.8 fL (9.5-12.2); Monocytes % (A) 15.9 %; Neutrophils # (A) 2.39 10*3/uL (1.80-7.70); Neutrophils % (A) 54.1 %; Platelet Count 120 10*3/uL (140-440); RBC 4.18 10*6/uL (4.40-5.60); RDW 12.2 % (11.5-14.5); WBC 4.41 10*3/uL (4.50-10.00)
[2024-08-07 06:54] LABS: African American GFR (CKD) >90 (>60 ml/min/1.73 sqM); Anion Gap 12 mmol/L; Blood Urea Nitrogen <2 mg/dL (9-20); Calcium 9.6 mg/dL (8.4-10.2); Carbon Dioxide 23 mmol/L (22-30); Chloride 101 mmol/L (98-107); Glucose 95 mg/dL (74-99); Magnesium 1.9 mg/dL (1.6-2.3); Non-African American GFR(CKD) >90 (>60 ml/min/1.73 sqM); Potassium 3.3 mmol/L (3.5-5.1); Sodium 136 mmol/L (137-145)
[2024-08-07] MEDS: THIAMINE 100 MG TAB PO SCH (11:26)
[2024-08-07] MEDS: 0.9% NACL WITH KCL 20 MEQ/L 1,000 ML with MVI, ADULT NO.4 WITH VIT K 10 ML, THIAMINE 10... IV SCH (14:39)
--- NOTE | 2024-08-07 15:24 | PN ---
PROGRESS NOTE DATE OF SERVICE: 08/07/2024 SUBJECTIVE: This is a 43-year-old gentleman who was admitted with acute delirium tremens, was combative and restless and had severe delirium tremens last night, not responding to Ativan. The patient was started on Precedex. The patient will be transferred to ICU at this time. The patient is sedated currently. A 4-point restrain also applied for patient's safety as well as administration of medications. PAST MEDICAL HISTORY: Reviewed. REVIEW OF SYSTEMS: Could not be taken. CURRENT MEDICATIONS: Reviewed. PHYSICAL EXAMINATION: VITAL SIGNS: Pulse is 76, blood pressure 105/70, and respirations 18. CHEST: Few scattered rhonchi. ABDOMEN: Soft, nontender. EXTREMITIES: Legs,n NERVOUS SYSTEM: Could not be examined. LABORATORY DATA: Sodium 133, potassium 3.3. Rest of the labs are noted. ASSESSMENT: 1. Severe acute delirium tremens and alcohol withdrawal syndrome necessitating Precedex drip. 2. Elevated AST/ALT, possible alcoholic hepatitis. 3. Hypomagnesemia. 4. Hypokalemia. 5. History of anxiety, depression, posttraumatic stress disorder. RECOMMENDATIONS AND DISCUSSION: Recommend to continue current management and continue symptomatic treatment. Continue with max dose Precedex. Closely follow with Pulmonary. Monitor in ICU. We will evaluate the respiratory parameters on a regular basis. Guarded prognosis, because of multiple complex medical issues. Further recommendations to follow. Potassium and magnesium replacement protocols. See orders for details. MMODL / IJN: [id number] / MTDD
[2024-08-08 06:20] LABS: Basophils # (A) 0.04 10*3/uL (0.00-0.10); Basophils % (A) 0.3 %; Eosinophils % (A) 1.6 %; HCT 39.8 % (39.6-50.0); Immature Platelet Fraction 6.3 % (1.1-6.1); Lymphocytes # (A) 1.28 10*3/uL (0.90-5.00); Lymphocytes % (A) 10.3 %; MCH 32.3 pg (27.0-32.0); MCHC 35.2 g/dL (32.0-37.0); MCV 91.7 fL (80.0-97.0); Mean Platelet Volume 10.8 fL (9.5-12.2); Monocytes % (A) 9.7 %; Neutrophils # (A) 9.62 10*3/uL (1.80-7.70); Neutrophils % (A) 77.6 %; Platelet Count 117 10*3/uL (140-440); RBC 4.34 10*6/uL (4.40-5.60)
[2024-08-08 06:31] LABS: ALT 46 U/L (4-49); AST 51 U/L (17-59); African American GFR (CKD) >90 (>60 ml/min/1.73 sqM); Albumin 3.9 g/dL (3.5-5.0); Alkaline Phosphatase 54 U/L (38-126); Anion Gap 11 mmol/L; Blood Urea Nitrogen 4 mg/dL (9-20); Calcium 9.4 mg/dL (8.4-10.2); Carbon Dioxide 25 mmol/L (22-30); Chloride 99 mmol/L (98-107); Glucose 97 mg/dL (74-99); Magnesium 1.7 mg/dL (1.6-2.3); Non-African American GFR(CKD) >90 (>60 ml/min/1.73 sqM); Phosphorus 4.2 mg/dL (2.5-4.5); Sodium 135 mmol/L (137-145); Total Bilirubin 1.3 mg/dL (0.2-1.3); Total Protein 6.7 g/dL (6.3-8.2)
[2024-08-08] MEDS: MAGNESIUM SULFATE-D5W PMX 1 GM in DEXTROSE/WATER 1 100ML.BAG IVPB ONE (06:44)
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
[2024-08-08 13:36] VITALS: BMI 17.4
--- NOTE | 2024-08-08 15:08 | XR ---
EXAMINATION TYPE: XR chest 1V portable DATE OF EXAM: 08/08/2024 2:21 PM COMPARISON: 07/01/2017 CLINICAL INDICATION: Male, 43 years old with history of chf, TECHNIQUE: XR chest 1V portable view(s) obtained. FINDINGS: The heart size is normal. The pulmonary vasculature is normal. The lungs are clear. IMPRESSION: 1. No acute pulmonary process. [facility], , 08/08/2024 3:06 PM
--- NOTE | 2024-08-08 20:50 | PN ---
PROGRESS NOTE DATE OF SERVICE: 08/08/2024 SUBJECTIVE: This 43-year-old gentleman was admitted with acute delirium tremens, was not responding to Ativan initially. The patient was started on Precedex drip and is being closely monitored in the ICU at this time. The patient is much more alert today. PAST MEDICAL HISTORY: Reviewed. REVIEW OF SYSTEMS: Could not be taken as the patient is confused. CURRENT MEDICATIONS: Reviewed. PHYSICAL EXAMINATION: VITAL SIGNS: Pulse is 82, blood pressure 105/66, and respirations 18. CHEST: Clear to auscultation. CARDIOVASCULAR: S1, S2. RESPIRATIONS: Few scattered rhonchi. ABDOMEN: Soft, nondistended, NERVOUS SYSTEM: No focal deficits. LABORATORY DATA: Reviewed. ASSESSMENT: 1. Severe acute delirium tremens with alcohol withdrawal necessitating Precedex drip in ICU. 2. Elevated AST and ALT, possible alcoholic hepatitis. 3. Hypomagnesemia. 4. Hypokalemia. 5. Anxiety, depression, posttraumatic stress disorder. RECOMMENDATIONS: Recommend to continue current management and continue symptomatic treatment, and also recommend chest x-ray to complete the workup. Continue with Precedex drip, which could be titrated with vitamin supplementation. Guarded prognosis. Further recommendations to follow. MMODL / IJN: [id number] /
[2024-08-09 07:35] LABS: Basophils # (A) 0.04 10*3/uL (0.00-0.10); Basophils % (A) 0.5 %; Eosinophils # (A) 0.13 10*3/uL (0.04-0.35); Eosinophils % (A) 1.6 %; HCT 39.9 % (39.6-50.0); HGB 13.8 g/dL (13.0-17.0); Immature Platelet Fraction 6.6 % (1.1-6.1); Lymphocytes # (A) 1.32 10*3/uL (0.90-5.00); Lymphocytes % (A) 15.8 %; MCH 32.1 pg (27.0-32.0); MCHC 34.6 g/dL (32.0-37.0); MCV 92.8 fL (80.0-97.0); Mean Platelet Volume 10.9 fL (9.5-12.2); Monocytes # (A) 1.19 10*3/uL (0.20-1.00); Monocytes % (A) 14.2 %; Neutrophils # (A) 5.65 10*3/uL (1.80-7.70); Neutrophils % (A) 67.3 %; Platelet Count 132 10*3/uL (140-440); RDW 12.1 % (11.5-14.5); WBC 8.38 10*3/uL (4.50-10.00)
[2024-08-09 07:58] LABS: ALT 36 U/L (4-49); AST 43 U/L (17-59); African American GFR (CKD) >90 (>60 ml/min/1.73 sqM); Albumin 4.5 g/dL (3.5-5.0); Alkaline Phosphatase 61 U/L (38-126); Anion Gap 11 mmol/L; Blood Urea Nitrogen 3 mg/dL (9-20); Calcium 9.7 mg/dL (8.4-10.2); Carbon Dioxide 22 mmol/L (22-30); Chloride 105 mmol/L (98-107); Glucose 103 mg/dL (74-99); Magnesium 1.7 mg/dL (1.6-2.3); Non-African American GFR(CKD) >90 (>60 ml/min/1.73 sqM); Potassium 3.9 mmol/L (3.5-5.1); Sodium 138 mmol/L (137-145); Total Bilirubin 0.6 mg/dL (0.2-1.3); Total Protein 7.4 g/dL (6.3-8.2)
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
--- NOTE | 2024-08-10 06:52 | P.PN ---
Subjective Progress Note Date: 08/09/24 This is a pleasant 43-year-old male who was recently admitted with significant alcohol withdrawal maintained on CIWA protocol although continuing to worsen requiring high amounts of Ativan with associated delirium and hallucinations was brought to the ICU for closer monitoring Precedex along with CIWA and Librium. Patient is off Precedex and is a transfer out of the ICU to [facility] once a bed becomes available. Patient to continue on CIWA protocol along with Librium and will taper. Patient does not appear to be withdrawing at this time. Patient is weak and would recommend PT/OT therapy evaluation. Patient reports he will be going home on discharge with family and does not want to go to alcohol rehab. To discuss further with family members in the outpatient setting. Patient is currently afebrile with no reports of chest pain or shortness of breath. Patient is reporting some abdominal discomfort although reports has not had a bowel movement in a couple of days. Recommend bowel regimen as needed as patient is reporting gas and most recently advanced in diet. Encouraged to increase activity as tolerated and will discuss with med surg nurse regarding possible discharge planning in 24 hours. White count has normalized at 8.38 of infection and patient denies any shortness of breath, pain or burning with urination. Sodium is 138 with a potassium of 3.9 creatinine 0.6 and magnesium is 1.7. Review of systems: Constitutional: No reports of fatigue, fever, or chills Cardiovascular: No reports of chest pain or palpitations Respiratory: No reports of shortness of breath or cough GI: No further reports of nausea, no reports of vomiting, reports passing gas but has not had a bowel movement : No reports of dysuria or retention Neurovascular: reports of generalized weakness although improving All medications have been reviewed PHYSICAL EXAMINATION: GENERAL: The patient is alert and oriented x4, Well developed, well nourished. Thin built HEENT: Pupils are round and equally reacting to light. EOMI. no scleral icterus. No conjunctival pallor. Normocephalic, atraumatic. No pharyngeal erythema. No thyromegaly. CARDIOVASCULAR: S1 and S2 muffled PULMONARY: diminished breath sounds bilaterally with no wheezing or rhonchi noted. ABDOMEN: soft. Nontender on exam. Thin. non-distended, normoactive bowel sounds. No palpable organomegaly. MUSCULOSKELETAL: No joint swelling or deformity. EXTREMITIES: No cyanosis, clubbing, or pedal edema. NEUROLOGICAL: Gross neurological examination did not reveal any focal deficits. SKIN: No rashes. Assessment: Severe acute delirium tremens with acute alcohol withdrawal requiring Precedex drip and ICU monitoring, improving and off Precedex Transaminitis, likely alcoholic hepatitis secondary to continued ongoing use Hypomagnesemia as well as hypokalemia, replaced and improved Anxiety, depression, PTSD Vaping with tobacco THC use History of previous alcohol induced seizures, is not maintained on seizure prophylaxis GI prophylaxis DVT prophylaxis Full code Plan: Recommend to continue with current medications and management with pulmonary med surg nurse following as patient required ICU monitoring on Precedex drip due to significant alcohol withdrawal. Patient is continued on CIWA protocol along with Librium taper and will continue to taper. Patient is off Precedex and being transferred out of the ICU to [facility] recommend monitoring overnight and will discuss discharge planning Encouraged increased activity as tolerated Continue with bowel regimen as needed as patient is reporting has not had a bowel movement in a couple of days although is passing a lot of gas. Encouraged frequent walking Patient is stable for transfer out of the ICU and will discuss discharge planning in 24 hours. Continue Librium taper and will plan for a short taper on discharge Discussed inpatient alcohol rehab and patient does not want to go to rehab although is willing to quit and resources were provided by social work Probable discharge planning in 24 hours as patient was just taken off Precedex this morning The impression and plan of care has been dictated by Lauren Angel, Nurse Practitioner as directed. Dr. Brent MD I have performed a history and examination and MDM of this patient, discussed the same with the dictator, and agree with the dictator's assessment and plan as written ,documented as a scribe. Based on total visit time, I have performed more than 50% of the visit. Objective - Vital Signs Vital signs: Vital Signs Temp 97.9 F 08/09/24 08:00 Pulse 92 08/09/24 10:00 Resp 16 08/09/24 10:00 BP 127/71 08/09/24 10:00 Pulse Ox 96 08/09/24 10:00 FiO2 Intake & Output 08/08/24 08/09/24 08/09/24 18:59 06:59 18:59 Intake Total 837.158 132.416 6230 Output Total 1400 5800 2300 Balance -562.842 -5145.541 -0863 Weight 61.4 kg 63.6 kg Intake: IV 650 600 150 0.9% NaCl with KCl 20 Meq 650 600 150 /l 1,000 ml @ 50 mls/hr IV .[id number] RICHARD with Mvi, Adult No.4 with Vit K 10 ml with Thiamine 100 mg with Folic Acid 1 mg Rx#: [id number] Intake, IV Titration 187.158 54.588 Amount Dexmedetomidine/0.9% NaCl 187.158 54.588 (Pmx) 400 mcg In Empty Bag 1 bag @ 0.2 MCG/KG/HR 3.175 mls/hr IV .Q24H RICHARD Rx#:[id number] Oral 1000 Output: Urine 1400 5800 2300 Other: Voiding Method Urinal Urinal Urinal # Voids 1 # Bowel Movements 1 - Labs CBC & Chem 7: 08/09/24 07:02 08/09/24 07:02 Labs: Abnormal Lab Results - Last 24 Hours (Table) 08/09/24 08/09/24 Range/Units 07:02 07:02 RBC 4.30 L (4.40-5.60) 10*6/uL MCH 32.1 H (27.0-32.0) pg Plt Count 132 L (140-440) 10*3/uL Immature Gran # 0.05 H (0.00-0.04) 10*3/uL Monocytes # 1.19 H (0.20-1.00) 10*3/uL Immature Plt Fraction 6.6 H (1.1-6.1) % BUN 3 L (9-20) mg/dL Creatinine 0.60 L (0.66-1.25) mg/dL Glucose 103 H (74-99) mg/dL
[2024-08-10 09:43] LABS: BUN/Creat Ratio 5.14 Ratio (12.00-20.00); Blood Urea Nitrogen 3.6 mg/dL (9.0-27.0); Calcium 9.5 mg/dL (8.7-10.3); Carbon Dioxide 23.7 mmol/L (21.6-31.8); Chloride 103 mmol/L (96-109); Glucose 102 mg/dL (70-110); Magnesium 1.6 mg/dL (1.5-2.4); Potassium 3.7 mmol/L (3.5-5.5); Sodium 139 mmol/L (135-145)
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
--- NOTE | 2024-08-10 18:25 | P.PN ---
Subjective Progress Note Date: 08/10/24 This is a pleasant 43-year-old male who was recently admitted with significant alcohol withdrawal maintained on CIWA protocol although continuing to worsen requiring high amounts of Ativan with associated delirium and hallucinations was brought to the ICU for closer monitoring Precedex along with CIWA and Librium. Patient is off Precedex and is a transfer out of the ICU to [facility] once a bed becomes available. Patient to continue on CIWA protocol along with Librium and will taper. Patient does not appear to be withdrawing at this time. Patient is weak and would recommend PT/OT therapy evaluation. Patient reports he will be going home on discharge with family and does not want to go to alcohol rehab. To discuss further with family members in the outpatient setting. Patient is currently afebrile with no reports of chest pain or shortness of breath. Patient is reporting some abdominal discomfort although reports has not had a bowel movement in a couple of days. Recommend bowel regimen as needed as patient is reporting gas and most recently advanced in diet. Encouraged to increase activity as tolerated and will discuss with dairy store manager regarding possible discharge planning in 24 hours. White count has normalized at 8.38 of infection and patient denies any shortness of breath, pain or burning with urination. Sodium is 138 with a potassium of 3.9 creatinine 0.6 and magnesium is 1.7. 08/10/2024 Patient is evaluated today in follow up at the medical floor. He is not reporting any acute complaints. He still feels like he is withdrawing and not quite ready for discharge. He did trip over the trash can in the room today and fell back on his bottom denies hitting his head. His magnesium is 1.6. Potassium 3.7. BUN 3.6, creatinine 0.7. Review of systems: Constitutional: No reports of fatigue, fever, or chills Cardiovascular: No reports of chest pain or palpitations Respiratory: No reports of shortness of breath or cough GI: No further reports of nausea, no reports of vomiting, reports passing gas but has not had a bowel movement : No reports of dysuria or retention Neurovascular: reports of generalized weakness although improving All medications have been reviewed PHYSICAL EXAMINATION: GENERAL: The patient is alert and oriented x4, Well developed, well nourished. Thin built HEENT: Pupils are round and equally reacting to light. EOMI. no scleral icterus. No conjunctival pallor. Normocephalic, atraumatic. No pharyngeal erythema. No thyromegaly. CARDIOVASCULAR: S1 and S2 muffled PULMONARY: diminished breath sounds bilaterally with no wheezing or rhonchi noted. ABDOMEN: soft. Nontender on exam. Thin. non-distended, normoactive bowel sounds. No palpable organomegaly. MUSCULOSKELETAL: No joint swelling or deformity. EXTREMITIES: No cyanosis, clubbing, or pedal edema. NEUROLOGICAL: Gross neurological examination did not reveal any focal deficits. SKIN: No rashes. Assessment: Severe acute delirium tremens with acute alcohol withdrawal requiring Precedex drip and ICU monitoring, improving and off Precedex Transaminitis, likely alcoholic hepatitis secondary to continued ongoing use Hypomagnesemia as well as hypokalemia, replaced and improved Anxiety, depression, PTSD Vaping with tobacco THC use History of previous alcohol induced seizures, is not maintained on seizure prophylaxis GI prophylaxis DVT prophylaxis Full code Plan: Recommend to continue with current medications and management with pulmonary dairy store manager following as patient required ICU monitoring on Precedex drip due to significant alcohol withdrawal. He has been transferred to the medical floor and currently off precedex Patient is continued on CIWA protocol along with Librium taper and will continue to taper. Encouraged increased activity as tolerated Continue with bowel regimen as needed as patient is reporting has not had a bowel movement in a couple of days although is passing a lot of gas. Encouraged frequent walking Continue Librium taper and will plan for a short taper on discharge Discussed inpatient alcohol rehab and patient does not want to go to rehab although is willing to quit and resources were provided by social work The impression and plan of care has been dictated by Carlie Hunter, Nurse Practitioner as directed. Dr. Brent MD I have performed a history and examination and MDM of this patient, discussed the same with the dictator, and agree with the dictator's assessment and plan as written ,documented as a scribe. Based on total visit time, I have performed more than 50% of the visit. Objective - Vital Signs Vital signs: Vital Signs Temp 98.4 F 08/10/24 13:37 Pulse 85 08/10/24 13:37 Resp 16 08/10/24 13:37 BP 119/73 08/10/24 13:37 Pulse Ox 98 08/10/24 13:37 FiO2 Intake & Output 08/09/24 08/10/2408/10/25 18:59 06:59 18:59 Intake Total 2150 540 Output Total 3300 Balance -1150 540 Intake: IV 450 0.9% NaCl with KCl 20 Meq 450 /l 1,000 ml @ 50 mls/hr IV .[id number] RICHARD with Mvi, Adult No.4 with Vit K 10 ml with Thiamine 100 mg with Folic Acid 1 mg Rx#: [id number] Oral 1700 540 Output: Urine 3300 Other: Voiding Method Urinal Toilet Toilet Urinal Urinal # Voids 1 3 # Bowel Movements 1 - Labs CBC & Chem 7: 08/09/24 07:02 08/10/24 05:21 Labs: Abnormal Lab Results - Last 24 Hours (Table) 08/10/24 Range/Units 05:21 Anion Gap 12.30 H (4.00-12.00) mmol/L BUN 3.6 L (9.0-27.0) mg/dL BUN/Creatinine Ratio 5.14 L (12.00-20.00) Ratio Assessment and Plan Time with Patient: Less than 30
[2024-08-10] MEDS: MAGNESIUM SULFATE-D5W PMX 1 GM in DEXTROSE/WATER 1 100ML.BAG IVPB SCH (18:38)
[2024-08-10] MEDS: POTASSIUM CHLORIDE ER 20 MEQ TAB.ER PO STA (18:38)
[2024-08-10 23:12] LABS: Glucose,Whole Blood 136 mg/dL (70-110)
[2024-08-11 09:28] LABS: BUN/Creat Ratio 5.57 Ratio (12.00-20.00); Blood Urea Nitrogen 3.9 mg/dL (9.0-27.0); Glucose 108 mg/dL (70-110)
[2024-08-11 09:29] LABS: Calcium 9.6 mg/dL (8.7-10.3); Carbon Dioxide 24.5 mmol/L (21.6-31.8); Chloride 104 mmol/L (96-109); Magnesium 1.8 mg/dL (1.5-2.4); Potassium 4.1 mmol/L (3.5-5.5); Sodium 139 mmol/L (135-145)
--- NOTE | 2024-08-11 14:08 | P.PN ---
Subjective Progress Note Date: 08/11/24 This is a pleasant 43-year-old male who was recently admitted with significant alcohol withdrawal maintained on CIWA protocol although continuing to worsen requiring high amounts of Ativan with associated delirium and hallucinations was brought to the ICU for closer monitoring Precedex along with CIWA and Librium. Patient is off Precedex and is a transfer out of the ICU to [facility] once a bed becomes available. Patient to continue on CIWA protocol along with Librium and will taper. Patient does not appear to be withdrawing at this time. Patient is weak and would recommend PT/OT therapy evaluation. Patient reports he will be going home on discharge with family and does not want to go to alcohol rehab. To discuss further with family members in the outpatient setting. Patient is currently afebrile with no reports of chest pain or shortness of breath. Patient is reporting some abdominal discomfort although reports has not had a bowel movement in a couple of days. Recommend bowel regimen as needed as patient is reporting gas and most recently advanced in diet. Encouraged to increase activity as tolerated and will discuss with hospice physician regarding possible discharge planning in 24 hours. White count has normalized at 8.38 of infection and patient denies any shortness of breath, pain or burning with urination. Sodium is 138 with a potassium of 3.9 creatinine 0.6 and magnesium is 1.7. 08/10/2024 Patient is evaluated today in follow up at the medical floor. He is not reporting any acute complaints. He still feels like he is withdrawing and not quite ready for discharge. He did trip over the trash can in the room today and fell back on his bottom denies hitting his head. His magnesium is 1.6. Potassium 3.7. BUN 3.6, creatinine 0.7. 08/11/2024 Patient is evaluated today in follow up. He has no acute complaints. He states that he is still shaky and unable to ambulate for long periods of time without losing his balance. PT will be consulted and he is agreeable to this. He has not required any Ativan however he is using Librium 3 times a day. He feels like if he cut back on Librium he will start to feel the withdrawals more. He is not quite ready for discharge yet. Review of systems: Constitutional: No reports of fatigue, fever, or chills Cardiovascular: No reports of chest pain or palpitations Respiratory: No reports of shortness of breath or cough GI: No further reports of nausea, no reports of vomiting, reports passing gas but has not had a bowel movement : No reports of dysuria or retention Neurovascular: reports of generalized weakness although improving All medications have been reviewed PHYSICAL EXAMINATION: GENERAL: The patient is alert and oriented x4, Well developed, well nourished. Thin built HEENT: Pupils are round and equally reacting to light. EOMI. no scleral icterus. No conjunctival pallor. Normocephalic, atraumatic. No pharyngeal erythema. No thyromegaly. CARDIOVASCULAR: S1 and S2 muffled PULMONARY: diminished breath sounds bilaterally with no wheezing or rhonchi noted. ABDOMEN: soft. Nontender on exam. Thin. non-distended, normoactive bowel sounds. No palpable organomegaly. MUSCULOSKELETAL: No joint swelling or deformity. EXTREMITIES: No cyanosis, clubbing, or pedal edema. NEUROLOGICAL: Gross neurological examination did not reveal any focal deficits. SKIN: No rashes. Assessment: Severe acute delirium tremens with acute alcohol withdrawal requiring Precedex drip and ICU monitoring, improving and off Precedex Transaminitis, likely alcoholic hepatitis secondary to continued ongoing use Hypomagnesemia as well as hypokalemia, replaced and improved Anxiety, depression, PTSD Vaping with tobacco THC use History of previous alcohol induced seizures, is not maintained on seizure prophylaxis GI prophylaxis DVT prophylaxis Full code Plan: Recommend to continue with current medications and management with pulmonary hospice physician following as patient required ICU monitoring on Precedex drip due to significant alcohol withdrawal. He has been transferred to the medical floor and currently off precedex Patient is continued on CIWA protocol along with Librium taper and will continue to taper. Encouraged increased activity as tolerated Continue with bowel regimen as needed as patient is reporting has not had a bowel movement in a couple of days although is passing a lot of gas. Encouraged frequent walking Continue Librium taper and will plan for a short taper on discharge Discussed inpatient alcohol rehab and patient does not want to go to rehab although is willing to quit and resources were provided by social work The impression and plan of care has been dictated by Carlie Hunter Nurse Practitioner as directed. Dr. Brent MD I have performed a history and examination and MDM of this patient, discussed the same with the dictator, and agree with the dictator's assessment and plan as written ,documented as a scribe. Based on total visit time, I have performed more than 50% of the visit. Objective - Vital Signs Vital signs: Vital Signs Temp 980 F H 08/11/24 08:00 Pulse 81 08/11/24 08:00 Resp 16 08/11/24 08:00 BP 114/78 08/11/24 08:00 Pulse Ox 100 08/11/24 08:00 FiO2 Intake & Output 08/10/24 08/11/24 08/11/24 18:59 06:59 18:59 Intake Total 2190 Balance 2190 Intake: Oral 2190 Other: Voiding Method Toilet Toilet Urinal Urinal # Voids 3 5 - Labs CBC & Chem 7: 08/09/24 07:02 08/11/24 03:36 Labs: Abnormal Lab Results - Last 24 Hours (Table) 08/10/24 08/11/24 Range/Units 23:11 03:36 BUN 3.9 L (9.0-27.0) mg/dL BUN/Creatinine Ratio 5.57 L (12.00-20.00) Ratio POC Glucose (mg/dL) 136 H (70-110) mg/dL Assessment and Plan Time with Patient: Less than 30
[2024-08-12 09:14] VITALS: BP 107/67; PULSE 86; RESP 18; TEMP 98.5
--- NOTE | 2024-08-12 23:40 | P.DS ---
Providers Date of admission: 08/06/24 06:04 Attending physician: Migel Rosa MD Consults: 08/06/24 16:56 Consult Physician Urgent Consulting Provider: Moe Jewell Consult Reason/Comments: etoh w/d, high ciwa score, icu? Do you want consulting provider notified?: Yes Primary care physician: Stated None Hospital Course: Final Diagnosis Severe acute delirium tremens with acute alcohol withdrawal requiring Precedex drip and ICU monitoring, improving and off Precedex Transaminitis, likely alcoholic hepatitis secondary to continued ongoing use Hypomagnesemia as well as hypokalemia, replaced and improved Anxiety, depression, PTSD Vaping with tobacco THC use History of previous alcohol induced seizures, is not maintained on seizure prophylaxis Discharge Disposition Stable for discharge home. Overall guarded prognosis due to hx of alcoholism. He wants to quit alcohol with plans to attend AA meetings and has community resources available on discharge. He is given prescription for librium taper on discharge. Hospital Course This is a pleasant 43-year-old male who was recently admitted with significant alcohol withdrawal maintained on CIWA protocol although continuing to worsen requiring high amounts of Ativan with associated delirium and hallucinations was brought to the ICU for closer monitoring Precedex along with CIWA and Librium. He was treated with IV precedex and was able to be weaned off. He was moved out of the ICU. Patient does not appear to be withdrawing at this time. Patient reports he will be going home on discharge with family and does not want to go to alcohol rehab. To discuss further with family members in the outpatient setting. Patient is currently afebrile with no reports of chest pain or shortness of breath.White count has normalized at 8.38 of infection and patient denies any shortness of breath, pain or burning with urination. Sodium is 138 with a potassium of 3.9 creatinine 0.6 and magnesium is 1.7. He was monitored on the medical floor and doing well. Did have a fall due to tripping over the trash can in the room with no injury. He is not actively withdrawing he is awake alert oriented. PT cleared patient for discharge home. He will DC today with librium taper. He states he goes to AA meetings with plans to continue on discharge. Review of systems: Constitutional: No reports of fatigue, fever, or chills Cardiovascular: No reports of chest pain or palpitations Respiratory: No reports of shortness of breath or cough GI: No further reports of nausea, no reports of vomiting, reports passing gas but has not had a bowel movement : No reports of dysuria or retention Neurovascular: reports of generalized weakness although improving All medications have been reviewed PHYSICAL EXAMINATION: GENERAL: The patient is alert and oriented x4, Well developed, well nourished. Thin built HEENT: Pupils are round and equally reacting to light. EOMI. no scleral icterus. No conjunctival pallor. Normocephalic, atraumatic. No pharyngeal erythema. No thyromegaly. CARDIOVASCULAR: S1 and S2 muffled PULMONARY: diminished breath sounds bilaterally with no wheezing or rhonchi noted. ABDOMEN: soft. Nontender on exam. Thin. non-distended, normoactive bowel sounds. No palpable organomegaly. MUSCULOSKELETAL: No joint swelling or deformity. EXTREMITIES: No cyanosis, clubbing, or pedal edema. NEUROLOGICAL: Gross neurological examination did not reveal any focal deficits. SKIN: No rashes. Please see medication reconciliation for a list of current medications. Thank you for allowing us to participate in the care of this patient. The impression and plan of care has been dictated by Carlie Hunter Nurse Practitioner as directed. Dr. Brent MD I have performed a history and physical examination and medical decision making of this patient, discussed the same with the dictator, and agree with the dictators assessment and plan as written, documented as a scribe. Based on total visit time, I have performed more than 50% of this visit. Patient Condition at Discharge: Stable Plan - Discharge Summary New Discharge Prescriptions: New chlordiazePOXIDE HCl [Librium] 25 mg PO DIRECTED #12 cap Thiamine [Vitamin B-1] 100 mg PO DAILY #30 tablet Discharge Medication List Thiamine [Vitamin B-1] 100 mg PO DAILY #30 tablet 08/12/24 [Rx] chlordiazePOXIDE HCl [Librium] 25 mg PO DIRECTED #12 cap 08/12/24 [Rx] Follow up Appointment(s)/Referral(s): [facility] [NON-STAFF] - 1-2 Days (Follow up for primary [facility] care ) None,Stated [Primary Care Provider] - 1-2 days Discharge/Stand Alone Forms: AA Марина [facility] [place], Outpatient Counseling, Inp Substance Abuse Facilities, Area PCPs Discharge Disposition: HOME SELF-CARE
== END 2024-08-12 13:24 | disposition home or self-care (01) | DRG 775 ==
LOC: EC 01:55 → 3SCARD 06:04 → 2SICU 23:04 → 4SSUR 08-09 16:42
PROVIDERS: ADMIT Internal Medicine; ATTEND Internal Medicine
DX: F10.232 Alcohol dependence with withdrawal with perceptual disturbance (principal); F10.231 Alcohol dependence with withdrawal delirium; F32.A Depression, unspecified; F41.9 Anxiety disorder, unspecified; F43.10 Post-traumatic stress disorder, unspecified; R45.1 Restlessness and agitation; I45.10 Unspecified right bundle-branch block; K70.10 Alcoholic hepatitis without ascites; D69.59 Other secondary thrombocytopenia; E83.42 Hypomagnesemia; E87.1 Hypo-osmolality and hyponatremia; E87.20 Acidosis, unspecified; E87.6 Hypokalemia; Z91.81 History of falling; Z78.1 Physical restraint status
CPT/HCPCS: 36415; 70450; 71045; 80048; 80053; 80184; 80306; 80320; 83690; 83735; 84100; 85025; 85610; 96361; 96365; 96366; 96367; 96372; 96375; 96376; 99291